=== PATIENT | female | born 1985 | race Caucasian/White ===

== ENCOUNTER → 2017-02-25 | Emergency (ER) | payer OTHER ==
[~2017-02-25] VITALS: Ht 172.7 cm; Wt 63.5 kg
[~2017-02-25] MED LIST: ALBUTEROL FS 2.5 MG/3 ML VIAL.NEB NEB ONE; ALBUTEROL FS 2.5 MG/3 ML VIAL.NEB ONE; IPRATROPIUM NEB FS 0.5 MG/2.5 ML AMPUL.NEB NEB ONE; IPRATROPIUM NEB FS 0.5 MG/2.5 ML AMPUL.NEB ONE; IV NS 0.9% 0 ML ONE; IV NS 0.9% 1,000 ML BAG IV ONE; IV NS 0.9% 1,000 ML ONE; IV SET PRIMARY 1 EA INFUS.SET MC ONE; LORAZEPAM INJ 2 MG/ML VIAL IV ONE; LORAZEPAM INJ 2 MG/ML VIAL ONE; POTASSIUM CHLORIDE 20 MEQ TAB.PRT.SR PO ONE
--- NOTE | 2017-02-25 15:15 | NUR ---
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 Skin is warm and dry. JANE Betts at for eval.
[2017-02-25 15:39] LABS: BASOPHILS # (AUTO) 0.1 /CMM (0.0-0.2); BASOPHILS % (AUTO) 0.9 % (0.0-2.0); EOSINOPHILS % (AUTO) 0.3 % (0.0-6.0); HEMATOCRIT 43 % (33-45); HEMOGLOBIN 14.5 g/dL (11.5-14.8); LYMPHOCYTES % (AUTO) 18.3 % (20.0-44.0); MEAN CORPUSCULAR HEMOGLOBIN 31 PG (26.0-33.0); MEAN CORPUSCULAR HGB CONC 34 g/dl (31.0-36.0); MEAN CORPUSCULAR VOLUME 92 fL (82-100); MONOCYTES # (AUTO) 0.8 /CMM (0.1-1.30); MONOCYTES % (AUTO) 7.5 % (2.0-12.0); NEUTROPHILS # (AUTO) 8.2 /CMM (1.8-8.9); PLATELET COUNT (AUTO) 347 /CMM (150-450); RDW COEFFICIENT OF VARIATION 11.8 (11.5-15.0); RED BLOOD CELL COUNT(AUTO) 4.66 MIL/uL (4.0-5.2); WHITE BLOOD COUNT (AUTO) 11.1 K/uL (4.3-11.0)
--- NOTE | 2017-02-25 15:50 | NUR ---
Breathing treatment at
[2017-02-25 15:51] LABS: CALCIUM, SERUM 8.6 mg/dL (8.5-10.1); CREATININE 1.1 mg/dL (0.6-1.3); POTASSIUM 3.4 mmol/L (3.5-5.1)
--- NOTE | 2017-02-25 16:00 | NUR ---
XRAY in progress at BS.
--- NOTE | 2017-02-25 17:22 | NUR ---
REPORT GIVEN TO JANE AVINA FOR [facility].
--- NOTE | 2017-02-25 17:23 | NUR ---
PT REPORT RECIVED FROM BROWN LARA, PT STATES SHE IS STILL FEELING DIZZY AND WEAK MD MADE AWARE WILL CONTINUE TO [facility].
[2017-02-25 18:21] VITALS: BP 99/68
--- NOTE | 2017-02-25 18:36 | NUR ---
Patient discharged to home in stable condition. Written and verbal after care instructions given. Patient verbalizes understanding of instruction.
--- NOTE | 2017-02-25 18:36 | NUR ---
IV removed. Catheter intact and site benign. Pressure and 4x4 applied to site. No bleeding noted.
== END | disposition home or self-care (01) ==
LOC: ER 15:11
DX: R55 Syncope and collapse (principal); J45.909 Unspecified asthma, uncomplicated
CPT/HCPCS: 36415; 71010; 80048; 84703; 85025; 85378; 93005; 94640; 96361; 96374; 99285; A4606; J2060; J7030 ×2; Z7610